=== PATIENT | male | born 1960 | race Caucasian/White ===

== ENCOUNTER 2022-08-27 17:16 | Emergency (ER) | payer OTHER, SELFPAY ==
[2022-08-27 17:27] VITALS: BP 126/79; PULSE 73; RESP 20; TEMP 36.3; O2SAT 99
--- NOTE | 2022-08-27 18:03 | ED.URI ---
HPI - URI/Sore Throat General Chief Complaint: Upper Respiratory Infection Stated Complaint: Sore Throat Time Seen by Provider: 08/27/22 17:43 Source: patient Mode of arrival: ambulatory Limitations: no limitations History of Present Illness HPI Narrative: Patient presents a 3 day history of hoarse voice with a sore throat x2 days. Denies any additional symptoms to include fever, cough, congestion or rhinorrhea. Currently rates his pain 4/10 and has not been taking any [id number]-[id number] medication for his symptoms prior to arrival. Denies any sick contacts. Related Data Allergies Allergy/AdvReac Type Severity Reaction Status Date / Time Sulfa (Sulfonamide Allergy Mild Hives Verified 08/27/22 17:29 Antibiotics) ciprofloxacin AdvReac Mild [place], rash Verified 08/27/22 17:29 codeine AdvReac Mild Headache Verified 08/27/22 17:29 hydrocodone AdvReac Mild [place], rash Verified 08/27/22 17:29 levofloxacin AdvReac Mild Headache Verified 08/27/22 17:29 Penicillins AdvReac Mild hives when Verified 08/27/22 17:29 baby Review of Systems Review of Systems: CONSTITUTIONAL: Denies body aches, fever, chills, or sweats. EYES: Denies visual changes, redness, or discharge. ENT: Denies rhinorrhea, congestion, or otalgia.+ sore throat, hoarse voice CARDIOVASCULAR: Denies chest pain, palpitations, or edema. RESPIRATORY: Denies cough or dyspnea. GASTROINTESTINAL: Denies abdominal pain, nausea, vomiting, or diarrhea. GENITOURINARY: Denies dysuria or hematuria. SKIN: Denies rash, itching, or wounds. MUSCULOSKELETAL: Denies back pain, joint pain, or myalgia. NEUROLOGIC: Denies headache, numbness, tingling, or weakness. PSYCH: Denies depression or anxiety. [facility] Family History Family History Mother Patient's mother is in good health Social History Social History Smoking status: Never smoker Second hand tobacco smoke exposure: No Alcohol intake: current Comments At time of signature, I have reviewed and agree with nursing past medical, surgical, social and family history unless otherwise noted. Please see nursing chart for further information. There is no relevant family history pertinent to the presenting complaint Exam Narrative: GENERAL: Well-appearing, well-nourished, and in no acute distress. HEAD: Normocephalic, atraumatic. EYES: EOMI. No redness or drainage. Conjunctivae normal. ENT: Mucous membranes pink and moist. Nares clear. No rhinorrhea. TMs normal bilaterally. Throat normal. Uvula midline. Hoarse voice NECK: Normal AROM. Supple. No lymphadenopathy. CHEST: No respiratory distress. Clear to auscultation. HEART: Regular rate and rhythm. No murmur appreciated. Normal peripheral pulses. EXTREMITIES: Normal range of motion. No edema. SKIN: Warm, dry, no rash. Capillary refill normal. Normal skin turgor. NEURO: No focal deficits. Alert and oriented x3. Gait steady. PSYCH: Normal affect. No signs of depression or anxiety. Course Course Level of Care: Express Care Visit Vital Signs Vital signs: Vital Signs Temperature 97.3 F L 08/27/22 17:27 Pulse Rate 73 08/27/22 17:27 Respiratory Rate 20 08/27/22 17:27 Blood Pressure 126/79 08/27/22 17:27 Pulse Oximetry 99 08/27/22 17:27 Oxygen Delivery Room Air 08/27/22 17:27 Temperature 97.3 F L 08/27/22 17:27 Pulse Rate 73 08/27/22 17:27 Respiratory Rate 20 08/27/22 17:27 Blood Pressure 126/79 08/27/22 17:27 Pulse Oximetry 99 08/27/22 17:27 Oxygen Delivery Room Air 08/27/22 17:27 Reviewed. Pt has been instructed to follow up with his PCP regarding his elevated blood pressure today. MDM - URI/Sore Throat MDM Narrative Medical decision making narrative: Rapid strep negative. Culture pending. Will treat with Medrol Dosepak for sore throat and laryngitis. Anticipatory guidance given. Differential Diagno
== END 2022-08-27 18:09 | disposition home or self-care (01) ==
PROVIDERS: Emergency Provider Nurse Practitioner; PCP Physician Assistant
DX: J04.0 Acute laryngitis (principal); J02.9 Acute pharyngitis, unspecified; N40.0 Benign prostatic hyperplasia without lower urinary tract symptoms; M19.90 Unspecified osteoarthritis, unspecified site; F41.9 Anxiety disorder, unspecified; F32.A Depression, unspecified
CPT/HCPCS: 87081; 87880; 99213; G0463